=== PATIENT | male | born 1970 | race Caucasian/White ===

== ENCOUNTER 2018-10-24 11:59 | Emergency (ER) | payer MEDICAID, OTHER ==
[~2018-10-24] VITALS: Ht 152.4 cm; Wt 74.0 kg
[~2018-10-24 11:59] MED LIST: NAPR-985 PO; TRAM50TA2 PO
[2018-10-24 12:06] VITALS: BP 133/87; PULSE 86; RESP 20; Ht 152.4 cm; Wt 74.0 kg
[2018-10-24] MEDS ORDERED: IBUP800T48 PO (13:09)
[2018-10-24] MEDS ORDERED: OSEL75CA23 PO (13:09)
[2018-10-24] MEDS ORDERED: D-ME473S2 PO (13:09)
--- NOTE | 2018-10-24 13:11 | ERD ---
ER Documentation Chief Complaint Chief Complaint Complains of cough, colds and flu like symptoms HPI This is a 48-year-old male with a nonsignificant past medical history presents ED with flulike symptoms for the past 6 days. Patient admits to fever, chills, cough and body aches. Up most concerned patient is a body aches. Denies sputum production, trouble breathing, shortness of breath, nausea, vomiting, diarrhea, constipation, hemoptysis, melena, hematochezia, sore throat, ear pain, abdominal pain. No known drug allergies. ROS All systems reviewed and are negative except as per history of present illness. Medications Home Meds Active Scripts Oseltamivir Phosphate* (Tamiflu*) 75 Mg Capsule, 75 MG PO BID for 5 Days, CAP Prov:FREDA WOMACK PA-C 10/24/18 Dextromethorphan Hb-Promethazine Hcl* (Promethazine DM* Syrup) 473 Ml Syrup, 5 ML PO Q6 PRN for COUGH for 5 Days, ML Prov:FREDA WOMACK PA-C 10/24/18 Ibuprofen* (Motrin*) 800 Mg Tab, 800 MG PO Q6, #30 TAB Prov:FREDA WOMACK PA-C 10/24/18 Naproxen* (Naprosyn*) 500 Mg Tablet, 500 MG PO BID PRN for PAIN AND/OR INFLAMMA TION, #30 TAB Prov:HEATH RAMSEY PA-C 10/07/16 Tramadol HCl (Tramadol HCl) 50 Mg Tablet, 50 MG PO Q4 PRN for PAIN, #20 TAB Prov:HEATH RAMSEY PA-C 10/07/16 Allergies Allergies: Coded Allergies: No Known Allergy (Unverified , 10/06/16) PMhx/Soc Hx Alcohol Use: No Hx Substance Use: No Hx Tobacco Use: No FmHx Family History: No diabetes Physical Exam Vitals Vital Signs Date Temp Pulse Resp B/P (MAP) Pulse Ox O2 O2 Flow FiO2 Time Delivery Rate 10/24/18 98.1 86 20 133/87 99 12:06 (102) Physical Exam Physical Exam Vitals signs: Reviewed by me. General: Well developed, well nourished, in no acute distress. Patient is awake and alert. Head: Normocephalic, atraumatic. Eyes: Normal conjunctiva, Pupils PERRLA, EOM intact grossly ENT: Pharynx is clear, Moist mucous membranes, external ears, nose and mouth normal, no tonsillar adenopathy, exudate or erythema, no rhinorrhea, tympanic membrane visualized bilaterally no bulging, erythema, purulent air-fluid line seen, no kissing tonsils, no uvula deviation Neck: Supple, no masses, lymphadenopathy or JVD Respiratory: Clear to auscultation bilaterally with no wheezing, rhonchi, rales, no distress Cardiovascular: RRR, no murmurs, rubs, or gallops Neurologic: Alert and oriented, moving all extremities, normal speech, no focal weakness, no cerebellar signs. Normal mentation Skin: warm and dry, No rash Psych: Normal mood Procedures/MDM ER COURSE: The patient was stable throughout ED course. I kept the patient and/or family informed of laboratory and diagnostic imaging results throughout the emergency room course. The patient was promptly evaluated and a treatment plan was devised based on H&P and other data. This plan was discussed with the patient who agreed and had no further questions or concerns prior to discharge. MEDICAL DECISION MAKIN-year-old male presents ED with complaints of fever, body aches cough and chills times 6 days. The patient's clinical presentation is very consistent with influenza. No evidence of pneumonia. The patient is well-appearing without respiratory distress. Normal oxygen saturation. X-ray imaging not indicated. The patient does not exhibit any clinical signs or symptoms concerning for serious bacterial infection or systemic illness. Based on history and clinical exam findings the patient does not appear to have evidence of pneumonia, strep pharyngitis, urinary tract infection, bacteremia, sepsis, or meningitis. For these reasons I do not believe it is necessary to obtain laboratory testing or diagnostic imaging. I believe it would be appropriate for symptom control, and close outpatient primary care follow-up. Advised lots of water lots of re st. We discussed follow up with the patient's primary care doctor within 24 to 48 hours as needed. We also discussed return to the emergency room for worsening symptoms or worsening condition. DISPOSITION PLAN: We discussed follow up with the patient's primary care doctor within 24 to 48 hours. Patient counseled regarding my diagnostic impression and care plan. Prior to discharge all questions answered. Pt agrees with treatment plan and understands strict return precautions. Precautionary instructions provided including instructions to return to the ER if not improving or for any worsening or changing symptoms or concerns. ExitCare instructions provided. Prior to discharge, patients vital signs have been reviewed SPECIALIST FOLLOW UP RECOMMENDED: None Patient has been advised to follow up with primary care in 1-2 days. Disclaimer: Inadvertent spelling and grammatical errors are likely due to EHR/dictation software use and do not reflect on the overall quality of patient care. Also, please note that the electronic time recorded on this note does not necessarily reflect the actual time of the patient encounter. Departure Diagnosis: Primary Impression: Influenza Condition: Stable Patient Instructions: Influenza (Adult) [facility] Usted se carvajal hecho un examen mdico de control que le indica que no est en cassidy condicin que requiera tratamiento urgente en el Departamento de Emergencia. Un estudio ms profundo y el tratamiento de frye condicin pueden esperar sin ningn riesgo hasta que usted sea atendida/o en el consultorio de frye mdico o cassidy clnica. Es responsabilidad suya arreglar cassidy fabian para el seguimiento del woody. MANEJO DE CONDICIONES NO URGENTES EN EL FUTURO 1) Si usted tiene un mdico de atencin primaria: Usted debera llamar a frye mdico de atencin primaria antes de venir al departamento de emergencia. Despus de las horas de consultorio, frye doctor o frye asociado/a est disponible por telfono. El mdico o enfermero de tatyana en el servicio telefnico puede asesorarle por khurram medio para atender el problema, o woody contrario se puede programar cassidy fabian. 2) Si usted no tiene un mdico de atencin primaria: Llame al mdico o clnica de referencia que aparece abajo jorje las horas de consultorio para hacer cassidy fabian para que le vean. CLINICAS: [facility] [phone] [facility] 396 [phone] [facility] [phone] [facility] [phone] [facility] [phone] [facility]. [phone] [address] Additional Instructions: Paciente aconseja volver a Departamento de urgencias inmediatamente para sntomas nuevos o que empeoran . Paciente aconseja posteriores con el PCP en 1-2 henao . Paciente verbaliza la comprehensin y est de acuerdo con el tratamiento y el curso de accin. Si el paciente no tiene ninguna de atencin primaria pueden seguir con [facility] [id number] [place] [address] o [facility] + [address] [address] FREDA WOMACK PA-C Oct 24, 2018 13:11
[2018-10-24] MEDS ORDERED: IBUPROFEN 800 MG TAB PO ONE (13:30)
== END 2018-10-24 13:30 | disposition home or self-care (01) ==
LOC: FTE 11:59
DX: J11.1 Influenza due to unidentified influenza virus with other respiratory manifestations (principal)
CPT/HCPCS: Z7502; Z7610; 99283